=== PATIENT | female | born 1955 ===

== ENCOUNTER 2017-11-05 10:22 | Emergency (ER) | payer BC ==
[2017-11-05 10:57] VITALS: BP 182/106
[2017-11-05] MEDS ORDERED: Al Hydrox/Mg Hydrox/Simet LIQ* 30 ML UDC PO ONE (11:05)
--- NOTE | 2017-11-05 11:44 | RAD ---
HISTORY: Pain COMPARISONS: None VIEWS: Frontal supine and upright views of the abdomen. FINDINGS: BOWEL: There is a nonspecific bowel gas pattern, with nondilated small bowel gas noted. There is a large amount of stool within the colon. CALCULI: There are no abnormal calculi. BONES AND SOFT TISSUES: Degenerative changes are noted. OTHER FINDINGS: The lung bases are clear. There is no subphrenic gas. IMPRESSION: NONSPECIFIC BOWEL GAS PATTERN. LARGE AMOUNT OF STOOL THROUGHOUT THE COLON.
--- NOTE | 2017-11-05 11:44 | UC ---
Abdominal Pain Female HPI - HPI Summary HPI Summary: Patient is a 62-year-old female who presents to the with epigastric pain that radiates intermittently over to the left upper quadrant 2 days. She continues to eat and drink okay. Denies any nausea or vomiting. Denies any diarrhea, but endorses a mild amount of constipation. She takes methotrexate daily. History of hypertension 20 years ago, but states she discontinued her medications herself. She does not follow up frequently with her PCP, NISH Posada, but gets annual physicals. She states she is otherwise healthy, denies any chest pain, shortness of breath, headache, visual changes, any other abdominal pain, urinary symptoms, back pain. No history of kidney stones comes UTI, gallbladder issues. Denies any abdominal surgeries. - History of Current Complaint Chief Complaint: UCAbdominalPain Stated Complaint: ABD PAIN Time Seen by Provider: 11/05/17 10:43 Hx Obtained From: Patient ?: No Onset/Duration: Sudden Onset Timing: Intermittent Episodes Lasting: - 1-2 hours Severity Initially: Mild Severity Currently: Mild Pain Intensity: 5 Pain Scale Used: 0-10 Numeric Location: Epigastric Radiates: Yes Radiates to: Other - LUQ Character: Aching, Burning Aggravating Factor(s): Nothing Alleviating Factor(s): Nothing Associated Signs and Symptoms: Positive: Negative Allergies/Adverse Reactions: Allergies Allergy/AdvReac Type Severity Reaction Status Date / Time No Known Allergies Allergy Verified 11/05/17 10:40 Home Medications: Home Medications Acetaminophen [Acetaminophen Extra Strength] 2 tab PO Q8H PRN 11/05/17 [History Confirmed 11/05/17] Methotrexate TAB* 15 mg PO WEEKLY 11/05/17 [History Confirmed 11/05/17] PMH/Surg Hx/FS Hx/Imm Hx Previously Healthy: Yes - Surgical History Surgical History: Yes Surgery Procedure, Year, and Place: Hysterectomy; x 2 - Social History Occupation: Employed Full-time Lives: With Family Alcohol Use: None Substance Use Type: None Smoking Status (MU): Heavy Every Day Tobacco Smoker Amount Used/How Often: 1/2ppd Review of Systems Constitutional: Negative Skin: Negative Cardiovascular: Negative Gastrointestinal: Abdominal Pain - epigastric Motor: Negative Neurovascular: Negative Musculoskeletal: Negative Is Patient Immunocompromised?: No All Other Systems Reviewed And Are Negative: Yes Physical Exam Triage Information Reviewed: Yes Appearance: Well-Appearing, No Pain Distress, Well-Nourished Vital Signs: Initial Vital Signs Temp 98.1 F 11/05/17 10:41 Pulse 91 11/05/17 10:41 Resp 18 11/05/17 10:41 BP 182/106 11/05/17 10:41 Pulse Ox 97 11/05/17 10:41 Vital Signs Reviewed: Yes Eye Exam: Normal Eyes: Positive: Conjunctiva Clear Neck exam: Normal Neck: Positive: Supple Respiratory Exam: Normal Respiratory: Positive: Chest non-tender, Lungs clear Cardiovascular Exam: Normal Cardiovascular: Positive: RRR Musculoskeletal Exam: Normal Musculoskeletal: Positive: Strength Intact Psychological: Positive: Normal Response To Family Skin Exam: Normal Abd Pain Female Course/Dx - Course Course Of Treatment: During the course of treatment, the patient remains asymptomatic. She states for the past day she has been having intermittent epigastric pain radiating over into the left upper quadrant. Denies any right lower quadrant, or right upper quadrant pain. She has never had a history of GERD, gastritis, duodenal ulcers or gastric ulcers. She has never seen a GI specialist. She takes methotrexate daily. Has not been taking any over-the- counter medications for relief. She does not take a PPI. Pain is not worse or better after eating. She states the pain gets slightly worse with standing, and dissipates upon sitting or lying flat. During the course of treatment, she is given Maalox plus and x-ray obtained. EKG obtained which shows normal sinus rhythm. Vital signs are stable other than hypertensive. X-ray obtained. Large amount of stool in the colon. She is given magnesium citrate 300 mg and is instructed. - Differential Dx/Diagnosis Provider Diagnoses: Constipation Discharge - Sign-Out/Discharge Documenting (check all that apply): Discharge/Admit/Transfer - Discharge Plan Condition: Stable Disposition: HOME Prescriptions: Magnesium CITRATE* [Citrate of Magnesia*] 300 ml PO SEE INSTRUCTIONS PRN #1 [id number] PRN Reason: Constipation Patient Education Materials: Constipation (ED), Hypertension (ED) Referrals: Devin VINES,Amy Gannon [Primary Care Provider] - Additional Instructions: Drink plenty of water Half bottle of mag citrate now, half bottle in 6-8 hours if no bowel movement You may also take Maalox plus, [id number] for any epigastric pain - Billing Disposition and Condition Condition: STABLE Disposition: HOME
== END 2017-11-05 11:58 | disposition home or self-care (01) ==
LOC: UCEAST 10:22
DX: K59.00 Constipation, unspecified (principal); F17.210 Nicotine dependence, cigarettes, uncomplicated
CPT/HCPCS: 74019; 93005; 99212; A9270-GY; G0463